=== PATIENT | male | born 1980 | race Caucasian/White ===

== ENCOUNTER 2018-02-14 02:07 | Emergency (ER) | payer BC ==
[2018-02-14 02:51] LABS: Absolute Lymphocytes (CBC) 3.5 K/uL (0.7-4.9); Absolute Monocytes 0.6 K/uL (0.1-1.3); Absolute Neutrophil 3.7 K/uL (1.8-8.0); Basophils % 0.5 % (0-1.3); Eosinophils % 0.8 % (0-4.4); Hematocrit 43.5 % (39.6-49.0); Lymphocytes % 43.9 % (15.3-44.8); MCH 30.5 pg (27.0-35.0); MPV 10.2 fL (7.6-11.3); Monocytes % 8.1 % (3.3-12.3); RBC Red Blood Cell Count 4.94 M/uL (4.33-5.43)
[2018-02-14 02:52] LABS: Protime INR 1.13
[2018-02-14 03:15] LABS: ALT/SGPT 27 U/L (12-78); AST/SGOT 21 U/L (15-37); Albumin 4.4 g/dL (3.4-5.0); Alkaline Phosphatase 51 U/L (45-117); BUN Blood Urea Nitrogen 14 mg/dL (7-18); Bicarbonate 23 mmol/L (21-32); Bilirubin Direct 0.3 mg/dL (0-0.2); Bilirubin Total 1.2 mg/dL (0.2-1.0); Glucose Level 113 mg/dL (74-106); NT PRO-BNP 51 pg/mL (<125); Potassium 3.2 mmol/L (3.5-5.1); Protein, Total 7.8 g/dL (6.4-8.2); Sodium Level 138 mmol/L (136-145); Troponin I < 0.02 ng/mL (0.0-0.045)
[2018-02-14] MEDS ORDERED: POTASSIUM 25 MEQ EFFERV TAB ONE (03:49)
[2018-02-14 04:12] LABS: Barbiturates NEGATIVE (NEGATIVE); Benzodiazepines NEGATIVE (NEGATIVE); Cocaine NEGATIVE (NEGATIVE); METHAMPHETAM NEGATIVE (NEGATIVE); Methadone NEGATIVE (NEGATIVE); Opiates NEGATIVE (NEGATIVE); Phencyclidine NEGATIVE (NEGATIVE); THC Cannibis NEGATIVE (NEGATIVE)
[2018-02-14 04:26] LABS: Urine Bacteria <20 /HPF (NONE SEEN); Urine Culture Reflex Order NOT NEEDED; Urine RBC NONE SEEN /HPF (NONE SEEN)
[2018-02-14 04:45] LABS: Urine Blood NEGATIVE (NEG); Urine Glucose NEGATIVE (NEG); Urine Protein NEGATIVE (NEG); Urine Specific Gravity 1.015 (1.005-1.030)
--- NOTE | 2018-02-14 05:11 | EDPHYS ---
Physician Documentation [facility] Name: Luis Head Age: 37 yrs Sex: Male : 1980 Arrival Date: 02/14/2018 Time: 02:08 Bed 5 Private MD: ED Physician Nik Mackey HPI: 02/14 04:02 This 37 yrs old Male presents to ER via Wheelchair with complaints of Chest wa Pain, Numbness Of Arm. 04:02 The patient or guardian reports chest pain that is located primarily in the substernal wa area. The pain radiates to the left arm. Associated signs and symptoms: Pertinent positives: lightheadedness, shortness of breath, tingling, numbness to both arms and also legs. The chest pain is described as aching. Duration: The patient or guardian reports a single episode, that is still ongoing. Modifying factors: The symptoms are alleviated by nothing. the symptoms are aggravated by nothing. Severity of pain: At its worst the pain was moderate in the emergency department the pain is actually worse moderately. The patient has not experienced similar symptoms in the past. The patient has not recently seen a physician. Historical: - Allergies: 02:17 No Known Allergies; ak1 - Home Meds: 02:17 Bystolic 10 mg Oral tab 1 tab once daily [Active]; losartan 50 mg Oral tab 1 tab once ak1 daily [Active]; - PMHx: 02:17 Hypertension; ak1 - PSHx: 02:17 None; ak1 - Immunization history:: Adult Immunizations up to date. - Social history:: Smoking status: Patient/guardian denies using tobacco. - Ebola Screening: : No symptoms or risks identified at this time. - Family history:: not pertinent. - Hospitalizations: : No recent hospitalization is reported. ROS: 04:03 Constitutional: Negative for fever, chills, and weight loss, Eyes: Negative for injury, wa pain, redness, and discharge, ENT: Negative for injury, pain, and discharge, Neck: Negative for injury, pain, and swelling, Abdomen/GI: Negative for abdominal pain, nausea, vomiting, diarrhea, and constipation, Back: Negative for injury and pain, : Negative for injury, bleeding, discharge, and swelling, MS/Extremity: Negative for injury and deformity, Skin: Negative for injury, rash, and discoloration, Neuro: Negative for headache, weakness, numbness, tingling, and seizure. 04:03 Cardiovascular: Positive for chest pain, Negative for edema, orthopnea, palpitations, paroxysmal nocturnal dyspnea. 04:03 Respiratory: Positive for shortness of breath, at rest. Negative for hemoptysis, orthopnea, pleurisy. 04:03 All other systems are negative. Exam: 04:04 Constitutional: This is a well developed, well nourished patient who is awake, alert, wa and in no acute distress. Head/Face: Normocephalic, atraumatic. Eyes: Pupils equal round and reactive to light, extra-ocular motions intact. Lids and lashes normal. Conjunctiva and sclera are non-icteric and not injected. Cornea within normal limits. Periorbital areas with no swelling, redness, or edema. ENT: Nares patent. No nasal discharge, no septal abnormalities noted. Tympanic membranes are normal and external auditory canals are clear. Oropharynx with no redness, swelling, or masses, exudates, or evidence of obstruction, uvula midline. Mucous membranes moist. Neck: Trachea midline, no thyromegaly or masses palpated, and no cervical lymphadenopathy. Supple, full range of motion without nuchal rigidity, or vertebral point tenderness. No Meningismus. Chest/axilla: Normal chest wall appearance and motion. Nontender with no deformity. No lesions are appreciated. Cardiovascular: Regular rate and rhythm with a normal S1 and S2. No gallops, murmurs, or rubs. Normal PMI, no JVD. No pulse deficits. Abdomen/GI: Soft, non-tender, with normal bowel sounds. No distension or tympany. No guarding or rebound. No evidence of tenderness throughout. Back: No spinal tenderness. No costovertebral tenderness. Full range of motion. Skin: Warm, dry with normal turgor. Normal color with no rashes, no lesions, and no evidence of cellulitis. MS/ Extremity: Pulses equal, no cyanosis. Neurovascular intact. Full, normal range of motion. Neuro: Awake and alert, GCS 15, oriented to person, place, time, and situation. Cranial nerves II-XII grossly intact. Motor strength 5/5 in all extremities. Sensory grossly intact. Cerebellar exam normal. Normal gait. Psych: Awake, alert, with orientation to person, place and time. Behavior, mood, and affect are within normal limits. 04:04 Respiratory: the patient does not display signs of respiratory distress, Respirations: normal, Breath sounds: are clear throughout, Respiratory rate: tachypneic Vital Signs: 02:16 BP 124 / 86; Pulse 63; Resp 16; Temp 98.6; Pulse Ox 100% on R/A; Weight 127.01 kg (R); ak1 Height 5 ft. 10 in. (177.80 cm); Pain 4/10; 02:46 BP 131 / 86; Pulse 68; Resp 18; Pulse Ox 100% on 2 lpm NC; ak1 03:45 BP 117 / 77; Pulse 74; Resp 14; Temp 98.4; Pulse Ox 100% on 2 lpm NC; Pain 0/10; ak1 04:31 BP 116 / 72; Pulse 61; Resp 12; Temp 98.4; Pulse Ox 100% on R/A; ak1 05:37 BP 107 / 70; Pulse 53; Resp 14; Temp 98.3; Pulse Ox 98% on R/A; Pain 0/10; ak1 02:16 Body Mass Index 40.18 (127.01 kg, 177.80 cm) ak1 MDM: 02:12 Patient medically screened. ut 04:05 Differential diagnosis: abnormal EKG, acute pericarditis, anxiety, coronary artery wa disease chest wall pain, congestive heart failure pericarditis, pleurisy, pneumonia, pneumothorax, pulmonary embolus, thoracic aortic disection, unstable angina. 05:04 Data reviewed: vital signs, nurses notes, lab test result(s), EKG, radiologic studies. ut Test interpretation: by ED physician or midlevel provider: normal CXR. CT chest: no acute findings. 05:05 Test interpretation: by ED physician or midlevel provider: low serum potassium. CT wa chest: no acute process. 05:06 HEART Score: History: Moderately Suspicious (1), ECG: Normal (0), Age: < or = 45 years ut (0), Risk Factors: 1 or 2 risk factors (1), Troponin: < or = 1 x Normal Limit (0), Total Score =. ED course: 0300 hrs: symptom-free. HEART score of 2. will obtain 3 hr troponin level. 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 06:24 Test interpretation: by ED physician or midlevel provider: nml troponin. ut 02/14 02:55 Order name: Basic Metabolic Panel; Complete Time: 03:29 [facility] 02/14 02:55 Order name: Liver (Hepatic) Function; Complete Time: 03:29 [facility] 02/14 02:55 Order name: Troponin I; Complete Time: 03:29 [facility] 02/14 02:55 Order name: NT PRO-BNP; Complete Time: 03:29 [facility] 02/14 02:55 Order name: CBC with Automated Diff; Complete Time: 03:29 [facility] 02/14 02:55 Order name: Protime (+INR); Complete Time: 03:29 [facility] 02/14 02:31 Order name: EKG; Complete Time: 04:23 ut 02/14 02:31 Order name: Cardiac monitoring; Complete Time: 02:43 ut 02/14 02:31 Order name: EKG - Nurse/Tech; Complete Time: 02:43 ut 02/14 02:31 Order name: IV Saline Lock; Complete Time: 02:43 ut 02/14 02:31 Order name: Labs collected and sent; Complete Time: 02:43 ut 02/14 02:31 Order name: O2 Per Protocol; Complete Time: 02:44 ut 02/14 02:31 Order name: O2 Sat Monitoring; Complete Time: 02:44 ut 02/14 02:55 Order name: Chest Single View [facility] 02/14 03:06 Order name: Thorax W/ Con [facility] 02/14 03:59 Order name: Urine Dipstick--Ancillary (enter results); Complete Time: 04:52 [facility] 02/14 04:00 Order name: Urine Drug Screen; Complete Time: 04:52 [facility] 02/14 04:00 Order name: Urine Microscopic Only; Complete Time: 04:52 [facility] 02/14 04:58 Order name: Troponin I; Complete Time: 06:24 ut 02/14 02:32 Order name: Urine Dipstick-Ancillary (obtain specimen); Complete Time: 03:53 ut Administered Medications: 03:44 Drug: Potassium Effervescent Tablet 50 mEq Route: PO; ak1 03:44 Follow up: Response: No adverse reaction ak1 Disposition: 02/14/18 05:10 Discharged to Home. Impression: Acute Chest Pain. - Condition is Stable. - Discharge Instructions: Nonspecific Chest Pain, [id number]. - Medication Reconciliation Form, Thank You Letter, Antibiotic Education, Prescription Opioid Use form. - Follow up: Brandi Nieves MD; When: 2 - 3 days; Reason: Recheck today's complaints. - Problem is new. - Symptoms are resolved. - Notes: follow up with the tea plantation worker as discussed. return here immediately if worsening symptoms Signatures: Dispatcher [employer] EDWV Selena Kwok RN RN ak1 Renuka Moseley RN RN tl2 Nik Mackey MD MD wa Corrections: (The following items were deleted from the chart) 04:45 04:23 UA MICROSCOPIC+U.LAB.BRZ ordered. EDMS EDMS 04:46 04:23 BASIC METABOLIC PANEL+C.LAB.BRZ ordered. EDMS EDMS 04:46 04:23 CBC+H.LAB.BRZ ordered. EDMS EDMS 04:46 04:23 HEPATIC FUNCTION+C.LAB.BRZ ordered. EDMS EDMS 04:47 04:23 PROBNP+C.LAB.BRZ ordered. EDMS EDMS 04:47 04:23 PROTIME (+INR)+COAG.LAB.BRZ ordered. EDMS EDMS 04:47 04:23 TROPONIN (EMERG DEPT USE ONLY)+C.LAB.BRZ ordered. EDMS EDMS 04:47 04:23 URINE DRUG SCREEN+CHEM UR.LAB.BRZ ordered. EDWV EDMS 04:54 04:23 Chest Single View+RAD.RAD.BRZ ordered. EDWV EDMS 06:24 04:23 Thorax W/ Con+CT.RAD.BRZ ordered. EDWV EDMS 06:31 05:10 02/14/2018 05:10 Discharged to Home. Impression: Acute Chest Pain. Condition is tl2 Stable. Forms are Medication Reconciliation Form, Thank You Letter, Antibiotic Education, Prescription Opioid Use. Follow up: Brandi Nieves; When: 2 - 3 days; Reason: Recheck today's complaints. Problem is new. Symptoms are resolved. wa
--- NOTE | 2018-02-14 05:11 | ER ---
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 pt stated he has had an anxiety attack "a few years ago" with same s/s. pt called EMS to his home but after waiting 25 mins, his brought him. Transition of care: patient was not received from another setting of care. Onset of symptoms was February 14, 2018. Risk Assessment: Do you want to hurt yourself or someone else? Patient reports no desire to harm self or others. Initial Sepsis Screen: Does the patient meet any 2 criteria? No. Patient's initial sepsis screen is negative. Does the patient have a suspected source of infection? No. Patient's initial sepsis screen is negative. Care prior to arrival: None. 02:17 Method Of Arrival: Wheelchair ak1 02:17 Acuity: FERMIN 3 ak1 Triage Assessment: 02:17 General: Appears uncomfortable, obese, Behavior is calm, cooperative. Pain: Complains ak1 of pain in chest and left arm. EENT: No signs and/or symptoms were reported regarding the EENT system. Neuro: No deficits noted. Cardiovascular: Reports chest pain, shortness of breath. Respiratory: Reports shortness of breath. GI: No signs and/or symptoms were reported involving the gastrointestinal system. : No signs and/or symptoms were reported regarding the genitourinary system. Derm: No signs and/or symptoms reported regarding the dermatologic system. Musculoskeletal: No signs and/or symptoms reported regarding the musculoskeletal system. Historical: - Allergies: 02:17 No Known Allergies; ak1 - Home Meds: 02:17 Bystolic 10 mg Oral tab 1 tab once daily [Active]; losartan 50 mg Oral tab 1 tab once ak1 daily [Active]; - PMHx: 02:17 Hypertension; ak1 - PSHx: 02:17 None; ak1 - Immunization history:: Adult Immunizations up to date. - Social history:: Smoking status: Patient/guardian denies using tobacco. - Ebola Screening: : No symptoms or risks identified at this time. - Family history:: not pertinent. - Hospitalizations: : No recent hospitalization is reported. Screenin:19 Abuse screen: Denies threats or abuse. Denies injuries from another. Nutritional ak1 screening: No deficits noted. Tuberculosis screening: No symptoms or risk factors identified. Fall Risk None identified. Assessment: 02:19 Pain: Pain radiates to left arm Pain began 1 hour ago. ak1 02:20 Reassessment: see triage assessment. ak1 02:44 Reassessment: Patient denies pain at this time. Patient states feeling better. Patient ak1 states symptoms have improved. pt stated the tightness in his chest has resolved. pt stated he still has some SOB and his "head feels funny" at bedside. pt given an urinal with urine sample requested. will continue to monitor. . 03:45 Reassessment: Patient appears in no apparent distress at this time. pt returned from CT ak1 and urged to provide urine sample. Patient denies pain at this time. Patient states feeling better. 05:37 Reassessment: Patient appears in no apparent distress at this time. No changes from ak1 previously documented assessment. Patient denies pain at this time. Patient states feeling better. Patient states symptoms have improved. 06:30 Reassessment: Patient appears in no apparent distress at this time. Patient and/or tl2 family updated on plan of care and expected duration. Pain level reassessed. Patient is alert, oriented x 3, equal unlabored respirations, skin warm/dry/pink. Pt verbalized understanding of discharge instructions, need for follow up. Vital Signs: 02:16 BP 124 / 86; Pulse 63; Resp 16; Temp 98.6; Pulse Ox 100% on R/A; Weight 127.01 kg (R); ak1 Height 5 ft. 10 in. (177.80 cm); Pain 4/10; 02:46 BP 131 / 86; Pulse 68; Resp 18; Pulse Ox 100% on 2 lpm NC; ak1 03:45 BP 117 / 77; Pulse 74; Resp 14; Temp 98.4; Pulse Ox 100% on 2 lpm NC; Pain 0/10; ak1 04:31 BP 116 / 72; Pulse 61; Resp 12; Temp 98.4; Pulse Ox 100% on R/A; ak1 05:37 BP 107 / 70; Pulse 53; Resp 14; Temp 98.3; Pulse Ox 98% on R/A; Pain 0/10; ak1 02:16 Body Mass Index 40.18 (127.01 kg, 177.80 cm) ak1 ED Course: 02:08 Patient arrived in ED. am2 02:12 Nik Mackey MD is Attending Physician. 02:16 Selena Kwok, RN is Primary Nurse. ak1 02:17 Arm band placed on Patient placed in an exam room, on a stretcher, on front desk monitor, ak1 on pulse oximetry, Patient notified of wait time. 02:18 Triage completed. ak1 02:19 Patient has correct armband on for positive identification. Placed in gown. Bed in low ak1 position. Call light in reach. Side rails up X 1. Adult w/ patient. youth nutritional monitor on. Pulse ox on. NIBP on. 02:19 Patient maintains SpO2 saturation greater than 95% on room air. ak1 02:26 Initial lab(s) drawn, by me, held in ED. EKG done, by ED staff, reviewed by Nik Mackey MD. Inserted saline lock: 20 gauge in right antecubital area, using aseptic technique. Blood collected. 02:50 X-ray completed. Portable x-ray completed in exam room. Patient tolerated procedure kw well. 02:55 Chest Single View In Process Unspecified. EDMS 03:44 Thorax W/ Con In Process Unspecified. EDMS 05:09 Brandi Nieves MD is Referral Physician. wa 06:17 No provider procedures requiring assistance completed. ak1 06:30 IV discontinued, intact, bleeding controlled, No redness/swelling at site. Pressure tl2 dressing applied. Administered Medications: 03:44 Drug: Potassium Effervescent Tablet 50 mEq Route: PO; ak1 03:44 Follow up: Response: No adverse reaction ak1 Outcome: 05:10 Discharge ordered by . wa 06:18 Condition: improved ak1 06:30 Discharged to home ambulatory, with family. tl2 06:30 Discharge instructions given to patient, Instructed on discharge instructions, follow up and referral plans. Demonstrated understanding of instructions, follow-up care. 06:31 Patient left the ED. tl2 Signatures: Dispatcher [employer] EDWV Prema, KarynaSelena Lynch RN RN ak1 Renuka Moseley RN RN tl2 Kamilla Acosta 2 Nik Mackey MD MD wa Corrections: (The following items were deleted from the chart) 05:39 05:37 BP 107 / 70; Pulse 53bpm; Resp 10bpm; Pulse Ox 98% RA; Temp 98.3F; Pain 0/10; ak1 ak1
--- NOTE | 2018-02-14 06:35 | EKG ---
Test Date: 2018-02-14 Test Time: 02:17:14 Instructional Interventionist: NAOMI MEASUREMENT RESULTS: Intervals: Rate: 64 DE: 82 QRSD: 104 QT: 450 QTc: 464 [place]: P: 41 DE: 82 QRS: 35 T: 62 INTERPRETIVE STATEMENTS: Sinus rhythm with short DE Nonspecific ST abnormality Abnormal ECG Compared to ECG 02/16/2015 03:08:24 No significant changes Electronically Signed On 02-14-18 06:35:25 CDT by Maxx Sheppard
[2018-02-14 06:42] VITALS: BP 107/70; TEMP 98.3; O2SAT 98
--- NOTE | 2018-02-14 09:33 | RAD REPORT ---
EXAM DESCRIPTION: RAD - Chest Single View - 02/14/2018 2:53 am CLINICAL HISTORY: CHEST PAIN Chest pain. COMPARISON: CHEST SINGLE VIEW dated 02/16/2015 FINDINGS: Portable technique limits examination quality. The lungs are grossly clear. The heart is normal in size. No displaced fractures. IMPRESSION: No acute intrathoracic process suspected.
--- NOTE | 2018-02-14 09:35 | RAD REPORT ---
EXAM DESCRIPTION: CT - Thorax W/ Con CLINICAL HISTORY: Chest pain ANXIETY ATTACK / CHEST PAIN THAT RADIATES TO LEFT ARM COMPARISON: No comparisons FINDINGS: Linear subsegmental atelectasis is present in the right lung base with mildly elevated rig ht hemidiaphragm. The lungs are otherwise clear. No pleural thickening or pleural effusion. No pneumo thorax. No axillary, mediastinal or hilar adenopathy. No concerning bony finding. Fatty liver. All CT scans are performed using dose optimization technique as appropriate and may include automated exposure control or mA/KV adjustment according to patient size. IMPRESSION: No acute abnormality is detected.
== END 2018-02-14 06:31 | disposition home or self-care (01) ==
LOC: ER 02:07
DX: R07.9 Chest pain, unspecified (principal); I10 Essential (primary) hypertension
CPT/HCPCS: 36415; 71045; 71260; 80048; 80076; 80307; 81003; 81015; 83880; 84484; 85025; 85610; 93005; 99285; Q9967